=== PATIENT | male | born 1950 | race Hispanic/Latino ===

== ENCOUNTER → 2023-10-28 | Outpatient (REF) | payer MEDICARE ==
[~2023-10-28] MED LIST: AMLODIPINE BESY10 MG PO; ASPIR 8181 MG PO; BYDUREON2 MG INJ; CATAPRES0.1 MG PO; CETIRIZINE HCL10 MG PO; CO Q-10100 MG PO; GARLIC1000 MG PO; GLUCOSA-CHOND-1 EACH PO; HUMALOG100 UNITS/ INJ; HYDROCHLOROTHIA25 MG PO; INVOKANA PO; LEVEMIR100 UNIT/1 INJ; LEVOTHYROXINE50 MCG PO; LORATADINE-D 21 EACH PO; LOTRISONE CREAM15 GM; LUTEIN20 MG PO; METFORMIN HCL1000 M1 PO; MULTIVITAMINS1 EAC7 PO; OMEGA 3-6-9 CO400 MG PO; PRAVASTATIN SOD40 MG PO; PROBIOTIC & AC1 EACH PO; RAMIPRIL10 MG PO; VITAMIN C1000 MG PO; VITAMIN D32000 UNI1 PO; VITAMIN E400 UNI2 PO
== END ==
LOC: DX 10:30
PROVIDERS: ATTEND Otolaryngology
DX: R13.13 Dysphagia, pharyngeal phase (principal)
CPT/HCPCS: 74230